=== PATIENT | female | born 1995 | race Caucasian/White ===

== ENCOUNTER → 2019-06-30 11:18 | Outpatient (CLI) | payer OTHER, SELFPAY | PROVIDERS: PCP Pediatrics; Visit Provider Obstetrics & Gynecology | DX: Z36.85 Encounter for antenatal screening for Streptococcus B (principal) | CPT/HCPCS: 87081 ==

== ENCOUNTER 2019-07-10 22:30 | Outpatient (CLI) | payer OTHER, SELFPAY ==
[2019-07-10 23:39] LABS: ROM Internal Control Test YES-OK TO RESULT pt. (Internal QC); ROM Patient Test Negative (Negative); Record Kit Lot#, ROM+ J8255
--- NOTE | 2019-07-11 09:47 | OB.TRI.HP_ITS ---
History of Present Illness Date of Service: 07/10/19 Was patient seen by the physician?: No Reason For Visit: R/O LABOR Date of Service: 07/10/19 Final LALA Source: LMP History of Present Illness: Pt c/o leaking of fluid and lower back pain since approx 2100 Allergies amoxicillin Allergy (Unknown, Verified 07/11/19 10:01) Other Unknown reaction Laboratory Studies: Laboratory Tests 07/10/19 Range/Units 22:50 Vag Amniotic Fld Detect Negative (Negative) NST - FHR Rate Baby A Baseline: 120 Variability:: Moderate Accelerations:: 15 x 15 Decelerations:: None NST Reactive:: Yes FHR Category:: Category I - FHR Rate Baby B Variability:: Moderate Decelerations:: None NST Reactive:: Yes FHR Category:: Category I Impression/Plan Assessment: 27yo @37w5d gestation c/o leaking of fluid and contractions GBS negative ROM negative Cat 1 FHTs No cervical supervisor policy change clerks 2 hours per RN Plan: Discharge home with [facility], labor precautions Follow up in office at next scheduled PBV
== END 2019-07-11 01:00 | disposition home or self-care (01) ==
LOC: WPOUT 23:06 → WP 23:06
PROVIDERS: Referring Provider Obstetrics & Gynecology; Visit Provider Obstetrics & Gynecology
DX: O47.1 False labor at or after 37 completed weeks of gestation (principal); O30.003 Twin pregnancy, unspecified number of placenta and unspecified number of amniotic sacs, third trimester; Z3A.37 37 weeks gestation of pregnancy
CPT/HCPCS: 59025; 59050; 84112; 99218; G0378

== ENCOUNTER 2019-07-11 12:10 | Outpatient (CLI) | payer OTHER, SELFPAY ==
[2019-07-11 12:50] VITALS: BMI 32.1
[2019-07-11] MEDS: Acetaminophen 500 MG Tablet 1000 MG PO (13:19)
[2019-07-11] MEDS: Lactated Ringers 1,000 ML 50 ML IV (18:10)
[2019-07-11 18:18] LABS: Absolute Lymphocyte Count 2.86 X10^3/uL (0.83-4.51); Absolute Neutrophil Count 9.7 X10^3/uL (2.0-7.7); Basophil# 0.03 X10^3/uL; Basophil% 0.2 % (0-1); Eosinophil# 0.13 X10^3/uL; Hematocrit 38.5 % (37-47); Hemoglobin 13.3 g/dL (12.0-15.0); Lymphocyte # 2.86 X10^3/ul (4.0); Mean Corp Hgb Conc 34.5 g/dL (32-36); Mean Corpuscular Hgb 35.2 pg (27.0-32.0); Mean Corpuscular Volume 101.9 fL (81-99); Mean Platelet Vol. 12.1 fl (6.2-12.0); Monocyte# 0.82 X10^3/uL; NRBC Flagged by Analyzer 0 % (0-5); Neutrophil # 9.73 X10^3/uL (2.7-7.7); Neutrophil % 71.3 % (47-70); Platelet Count 178 K/mm3 (150-450); RBC Distribution Width CV 12.4 % (11.6-14.6); RBC Distribution Width SD 46.5 fl (35.1-43.9); Red Blood Count 3.78 M/mm3 (4.2-5.4); White Blood Count 13.6 K/mm3 (4.4-11.0)
[2019-07-11] MEDS: Nalbuphine 10 MG/ML Ampul SC (18:27)
--- NOTE | 2019-07-11 22:35 | PCM.HP.BLA ---
History and Physical OB HISTORY AND PHYSICAL EXAMINATION This is a late entry for 07/11/19 at 1840 History of this : 23 yo female Ab0 with EDC 07/26/2019 by 9w3d Ultrasound, presents to Labor and Delivery today at 37w6d gestation. Patient seen office today c/o contractions and extreme fatigue r/t lack of sleep. She states she is extremely uncomfortable; She was at [facility] last night with same complaint and questionalble PROM; she was found to be ROM Plus negative, and without cervical chart changer two hours after which she was discharged home at about 0100 after discussion of options. Cervix at that time was 2/50/-2, soft and posterior; This morning she returned to [facility] and was told her cervix was only 1cm, after which she requested an appointment in the office. A BPP was done with score of 8/8. Cervical exam is 3.5/50/-2, soft and anterior with membranes intact. She is tearfrul, and experiencing extreme anxiety related to the upcoming one year anniversary of an daughter's from SIDS; Having made cervical change overnight, and continuing to contract, she is assumed to be in early labor and will be admitted to inpatient for pain management and expectant management of early labor. She is GBS negative;. care remarkable for: 2nd baby: mec stained fluid, Late transfer at 30 weeks from [place]; was in the [employer], Loss of daughter - unknown cause - at 6 weeks., Hx of preeclampsia, 4 yr old son is being tested for Autism, MSAFP performed at prior care provider for this . CF testing declined., NOT immune to Varicella!, Equivocal immunity to Rubella, Pt's sister has Mast Cell Disorder Pertinent Past Medical History: Non-contributory Rubella: EQUIVOCAL 11/15/18 Allergies: Omnicef, Amoxicillin Medications: PNV REVIEW OF SYSTEMS Non-Contributory PHYSICAL EXAMINATION General Appearence: 23 yo female in no acute distress Vital Signs: AF, VSS Heart: RRR without rubs or gallops Lungs: CTA x 2 Breasts: deferred Abdomen: gravid, soft, non tender Pelvis: Vulva: normal Vagina: normal Cervix: 3.5/50/-2, soft, anterior Presentation: Cephalic Fetus: Size: AGA Movement: Present present Heart: 155 bpm, moderate variability, with accels, no decels Uterus: Contractions Q2-5 minutes, palpating mild to moderate Impression: IUP @ 37w6d in early labor Anxiety Rubella equivocal GBS negative Plan: Admit to labor and delivery IV nubain for pain management Encourage rest Expectant management until active labor See Progress Notes for Changes:
[2019-07-11] MEDS: Lactated Ringers 500 ML 999 ML IV (23:45)
--- NOTE | 2019-07-12 01:41 | PCM.PN.OB ---
Subjective: This is a late entry for 07/11/191939 Dozing after a dose of Nubain; family bedside and supportive Objective: FHTs: 125 bpm, moderate variability, no accels, no decels UCs: Irritability pattern with occasional contractions Cervical exam: unchanged per RN - Physical Exam General: Oriented x3, Cooperative, No apparent distress HEENT: PERRLA, EOMI Oral: Moist Mucosa Neck: Supple Lungs: Clear to auscultation, Normal air movement Cardiovascular: Regular rate, Regular Rhythm Abdomen: Bowel Sounds Present, Soft, Non Tender, Non-Distended, Gravid Extremities: Capillary Refill Less than 3 Seconds, No Calf Tenderness Musculoskeletal: No Tenderness to Palpation of Joints or Extremities Neurological: Cranial nerves II-XII grossly intact, Deep Tendon Reflexes 2+/4 and Symmetrical Weight: 176 lb Body Mass Index (BMI) 32.1 Intake and Output for Last 24 Hours 07/10/19 07/11/19 07/12/19 23:59 23:59 23:59 Intake Total 366.67 / 366.67 Balance 366.67 / 366.67 Laboratory Tests Past 24 Hrs 07/11/19 07/11/19 18:00 18:00 WBC 13.6 H RBC 3.78 L Hgb 13.3 Hct 38.5 MCV 101.9 H MCH 35.2 H MCHC 34.5 RDW Std Deviation 46.5 H RDW Coeff of Kasie 12.4 Plt Count 178 MPV 12.1 H Immature Gran % (Auto) 0.500 Neut % (Auto) 71.3 H Lymph % (Auto) 21.0 [place] % (Auto) 6.0 Eos % (Auto) 1.0 Baso % (Auto) 0.2 Absolute Neuts (auto) 9.7 H Absolute Lymphs (auto) 2.86 Nucleated RBC % 0 Blood Type O POSITIVE Antibody Screen NEGATIVE Medical Necessity - Tobacco Use Smoking Status: Former smoker Assessment/Plan Assessment: Early labor Pain well controlld Anxiety Rubella equivocal GBS negative Plan: Close monitoring Continue expectant management until active labor
--- NOTE | 2019-07-12 02:59 | PN.OBGYN_ITS ---
Subjective: This is a late entry for 07/11/19 at 2130 Resting; rates occasional contraction pain and persistent back pain 4/10; declines medication at this time Objective: FHTs: 120 bpm, moderate variability, with accels, no decels UCs: Irritability pattern with occasional accels Cervical exam: deferred - Physical Exam General: Alert, Oriented x3, Cooperative Neurological: Cranial nerves II-XII grossly intact Psych/Mental Status: Normal Affect, Appropriate Weight: 176 lb Body Mass Index (BMI) 32.1 Intake and Output for Last 24 Hours 07/10/19 07/11/19 07/12/19 23:59 23:59 23:59 Intake Total 366.67 / 366.67 Balance 366.67 / 366.67 Laboratory Tests Past 24 Hrs 07/11/19 07/11/19 18:00 18:00 WBC 13.6 H RBC 3.78 L Hgb 13.3 Hct 38.5 MCV 101.9 H MCH 35.2 H MCHC 34.5 RDW Std Deviation 46.5 H RDW Coeff of Kasie 12.4 Plt Count 178 MPV 12.1 H Immature Gran % (Auto) 0.500 Neut % (Auto) 71.3 H Lymph % (Auto) 21.0 [place] % (Auto) 6.0 Eos % (Auto) 1.0 Baso % (Auto) 0.2 Absolute Neuts (auto) 9.7 H Absolute Lymphs (auto) 2.86 Nucleated RBC % 0 Blood Type O POSITIVE Antibody Screen NEGATIVE Medical Necessity - Tobacco Use Smoking Status: Former smoker Assessment/Plan Assessment: Early vs. Latent labor Tolerating pain well Anxiety Rubella equivocal GBS negative Plan: Continue expectant management
--- NOTE | 2019-07-12 03:15 | PN.OBGYN_ITS ---
Subjective: This is a late entry for 07/11/18 at 2345 Feeling naueus, nervous; expressing fear that she will be sent home; declines antiemetic family and spouse bedside and supportive Objective: Afebrile, BP 98/65 FHTs: 115 bpm with accels, no decels UCs: Irritibility patter Cervical exam: deferred - Physical Exam General: Alert, Oriented x3, Cooperative Neurological: Cranial nerves II-XII grossly intact Psych/Mental Status: Anxious, Restless Weight: 176 lb Body Mass Index (BMI) 32.1 Intake and Output for Last 24 Hours 07/10/19 07/11/19 07/12/19 23:59 23:59 23:59 Intake Total 366.67 / 366.67 Balance 366.67 / 366.67 Laboratory Tests Past 24 Hrs 07/11/19 07/11/19 18:00 18:00 WBC 13.6 H RBC 3.78 L Hgb 13.3 Hct 38.5 MCV 101.9 H MCH 35.2 H MCHC 34.5 RDW Std Deviation 46.5 H RDW Coeff of Kasie 12.4 Plt Count 178 MPV 12.1 H Immature Gran % (Auto) 0.500 Neut % (Auto) 71.3 H Lymph % (Auto) 21.0 [place] % (Auto) 6.0 Eos % (Auto) 1.0 Baso % (Auto) 0.2 Absolute Neuts (auto) 9.7 H Absolute Lymphs (auto) 2.86 Nucleated RBC % 0 Blood Type O POSITIVE Antibody Screen NEGATIVE Medical Necessity - Tobacco Use Smoking Status: Former smoker Assessment/Plan Assessment: Prodromal labor Transient hyptension Anxiety Rubella equivocal GBS negative Plan: 500 ml bolus LR Turn from back onto right side Close monitoring Emotional support Continue expectant management
--- NOTE | 2019-07-12 03:25 | PN.OBGYN_ITS ---
Subjective: Time: Crying, restless, anxiety increasing, fears that she will be sent home; states that she feels lower pelvic pressure and increased vaginal discharge; family, spouse bedside, supportive Objective: AVSS FHTs: 125bpm, moderate variability, with accels, no decels UCs: Irritability pattern with occasional contractions Cervical exam: unchanged - Physical Exam General: Alert, Oriented x3, Cooperative Neurological: Cranial nerves II-XII grossly intact Psych/Mental Status: Anxious, Restless, Alert and oriented to time, place, person, mood and affect Weight: 176 lb Body Mass Index (BMI) 32.1 Intake and Output for Last 24 Hours 07/10/19 07/11/19 07/12/19 23:59 23:59 23:59 Intake Total 366.67 / 366.67 Balance 366.67 / 366.67 Laboratory Tests Past 24 Hrs 07/11/19 07/11/19 18:00 18:00 WBC 13.6 H RBC 3.78 L Hgb 13.3 Hct 38.5 MCV 101.9 H MCH 35.2 H MCHC 34.5 RDW Std Deviation 46.5 H RDW Coeff of Kasie 12.4 Plt Count 178 MPV 12.1 H Immature Gran % (Auto) 0.500 Neut % (Auto) 71.3 H Lymph % (Auto) 21.0 [place] % (Auto) 6.0 Eos % (Auto) 1.0 Baso % (Auto) 0.2 Absolute Neuts (auto) 9.7 H Absolute Lymphs (auto) 2.86 Nucleated RBC % 0 Blood Type O POSITIVE Antibody Screen NEGATIVE Medical Necessity - Tobacco Use Smoking Status: Former smoker Assessment/Plan Assessment: Protracted Prodromal Labor Extreme anxiety Cat 1 FHTs Plan: Extensive discussion with patient, family re: fear, anxiety related to pending and coping with one year anniversary of loss of previous infant to SIDS, and potential relationship to protracted prodromal labor; options for therapeutic rest, comfort measures, coping measures; offered private time with spouse to talk through fears, anxiety, unexpressed grief, followed by warm shower, a walk, a meal, etc., and/or IV pain medication to promote rest; Pt agrees to private time with spouse, followed by a light meal then IV pain medication to allow for rest Reassurance provided Regular diet ordered until active labor May have IV nubain after meal for pain management or sleep
--- NOTE | 2019-07-12 06:54 | PN.OBGYN_ITS ---
Subjective: Reports minor back discomfort, has had an opportunity to process feelings in private with spouse, has had a meal and a nap, and feeling much better better about the potential for discharge home Objective: AVSS FHTs: 120bpm baseline, moderate variability with accels, no decels UCs: Occasional, mild Cervix: unchanged at 3.5/50/-2 - Physical Exam General: Alert, Oriented x3, Cooperative, No apparent distress Neurological: Cranial nerves II-XII grossly intact Psych/Mental Status: Normal Affect, Appropriate, Alert and oriented to time, place, person, mood and affect Comment: Affect now relaxed and without anxiety Weight: 176 lb Body Mass Index (BMI) 32.1 Intake and Output for Last 24 Hours 07/10/19 07/11/19 07/12/19 23:59 23:59 23:59 Intake Total 366.67 / 366.67 620 / 620 Output Total 500 / 500 Balance 366.67 / 366.67 120 / 120 Laboratory Tests Past 24 Hrs 07/11/19 07/11/19 18:00 18:00 WBC 13.6 H RBC 3.78 L Hgb 13.3 Hct 38.5 MCV 101.9 H MCH 35.2 H MCHC 34.5 RDW Std Deviation 46.5 H RDW Coeff of Kasie 12.4 Plt Count 178 MPV 12.1 H Immature Gran % (Auto) 0.500 Neut % (Auto) 71.3 H Lymph % (Auto) 21.0 [place] % (Auto) 6.0 Eos % (Auto) 1.0 Baso % (Auto) 0.2 Absolute Neuts (auto) 9.7 H Absolute Lymphs (auto) 2.86 Nucleated RBC % 0 Blood Type O POSITIVE Antibody Screen NEGATIVE Medical Necessity - Tobacco Use Smoking Status: Former smoker Assessment/Plan Assessment: IUP at 38w0d with recent episodes of painful contractions and cervical change, now resolved No cervical change in 12 hours, not in labor Recent feelings of anxiety resolving Cat 1 FHTs Plan: Discussed at length risks/benefits of IOL at 39 weeks vs. now; patient readily accepts recommendation for IOL at 39 weeks; consents signed and witnessed IOL scheduled for July 26 at 0700 with department approval Discharge instructions discussed IV removed Discharge home with labor precautions, FM counts, recommendations for rest; follow up in office at next scheduled PNV
--- NOTE | 2019-07-12 07:21 | NURSING ---
pt being discharged prior to delivery. BC not completed. WP section not filled out completely d/t no at this time.
--- NOTE | 2019-07-13 13:25 | CASEMGMT ---
Social Work Labor and Delivery Consult placed for this patient on 07.11.2019 at 1930, which is after normal social work hours, for history of loss of 6 week old infant about a year ago, history of depression and anxiety. Patient then discharged on 07.12.2019 at approximately 0720, which is prior to this freelance writer's normal arrival time. Noted that patient has not yet delivered, and listed with an estimated date of delivery as 07.26.2019. Social work will plan to see patient at delivery admission for assessment, support, and provision of resources as indicated. Note left on care chart in labor and delivery unit for the need to reconsult social work at time of delivery. -LATRICE Gaitan, FUR REPAIRER
== END 2019-07-12 07:40 | disposition home or self-care (01) ==
LOC: WPOUT 12:16 → WP 12:16
PROVIDERS: Referring Provider Obstetrics & Gynecology; Visit Provider Obstetrics & Gynecology
DX: O60.03 Preterm labor without delivery, third trimester (principal); O99.343 Other mental disorders complicating pregnancy, third trimester; F41.8 Other specified anxiety disorders; O13.3 Gestational [pregnancy-induced] hypertension without significant proteinuria, third trimester; Z78.9 Other specified health status; Z3A.38 38 weeks gestation of pregnancy; Z87.891 Personal history of nicotine dependence
CPT/HCPCS: 96360; 96372; 59025; 59050; 85025; 86850; 86900; 86901; 99218; J7120; G0378

== ENCOUNTER 2019-07-19 00:15 | Inpatient (IN) | payer OTHER, SELFPAY ==
[2019-07-18 22:44] VITALS: BMI 32.2
[2019-07-19] MEDS: Lactated Ringers 1,000 ML 50 ML IV (00:30)
[2019-07-19 00:42] LABS: Absolute Lymphocyte Count 2.89 X10^3/uL (0.83-4.51); Absolute Neutrophil Count 11.5 X10^3/uL (2.0-7.7); Basophil# 0.04 X10^3/uL; Basophil% 0.3 % (0-1); Eosinophils% 0.6 % (0-5); Hemoglobin 12.6 g/dL (12.0-15.0); Lymphocyte # 2.89 X10^3/ul (4.0); Lymphocyte % 18.4 % (19-41); Mean Corp Hgb Conc 34.1 g/dL (32-36); Mean Corpuscular Hgb 34.7 pg (27.0-32.0); Mean Corpuscular Volume 101.9 fL (81-99); Mean Platelet Vol. 12.5 fl (6.2-12.0); Monocyte# 1.06 X10^3/uL; Monocyte% 6.7 % (0-10); NRBC Flagged by Analyzer 0 % (0-5); Neutrophil # 11.51 X10^3/uL (2.7-7.7); Neutrophil % 73.3 % (47-70); POSITIVE MORPHOLOGY YES; Platelet Count 158 K/mm3 (150-450); RBC Distribution Width CV 12.7 % (11.6-14.6); RBC Distribution Width SD 47.4 fl (35.1-43.9); Red Blood Count 3.63 M/mm3 (4.2-5.4); White Blood Count 15.7 K/mm3 (4.4-11.0)
[2019-07-19 00:43] LABS: Differential Indicated SCAN CRITERIA MET
[2019-07-19] MEDS: Nalbuphine 10 MG/ML Ampul IV (01:02)
[2019-07-19 01:11] LABS: Differential Comment SCANNED
[2019-07-19] MEDS: Lactated Ringers 500 ML 999 ML IV ×2 (07:06→08:43)
[2019-07-19] MEDS: Oxytocin 30 units/NS 500 ml 30 UNITS/500 ML IV.SOLN IV (07:54)
--- NOTE | 2019-07-19 08:04 | HP.PCM_ITS ---
History and Physical Date of Admission: 07/18/19 This is a late entry for 07/19/2019, 0715 This is a 23 yo at 39w0 gestation today by L=92w1d US admitted last evening for contractions; she has had several visits prior to this for prodromal labor without cervical change and is scheduled for IOL today; given an infant demise within the past year at 6 weeks of age for unknown cause (SIDS), and maternal anxiety, a decision was made to admit her overnight for expectant management, then proceed with pitocin IOL today. [facility] [place] - HISTORY AND PHYSICAL (07/19/2019) Name: TAWANA MARTINEZAH OB Physician: JAMEL [place]'s Physician: UNDECIDED ...................................................................... : 1995 Age: 23 Address: [address] [place] [address] Phone: (h) [phone] ([phone] Insurance Carrier: [employer] [id number] Emergency Contact: SHANELL KUO [phone] ...................................................................... Final LALA: 07/26/19 By Ultrasound: 9w1d PARITY: (G-Total Pregnancies P-Fullterm,Premature,Induced AB,Spont AB, Ectopics, Multiple,Living) LALA CONFIRMATION: By LMP: 10/19/18 Final LALA: 07/26/19 BLOOD TYPE: O POSITIVE AFP: 1 HR PG: GBS: Original Ordering Provider: Wang TERRELL Culture Group B Beta Streptococcus is not isolated. Rublla titer (>10 immune)--Nov 15 2018: EQUIVOCAL Hepatatis B alan AG-- Nov 15 2018: NEGATIVE OB PROBLEM LIST: 2nd baby: mec stained fluid 4 yr old son is being tested for Autism ALLERGIC to PCN, Omnicef, Amoxicillin! Equivocal immunity to Rubella Hx of preeclampsia Late transfer at 30 weeks from [place]; was [employer] Loss of daughter - unknown cause - at 6 weeks. MSAFP performed at prior care provider for this . CF testing declined. NOT immune to Varicella! Pt's sister has Mast Cell Disorder ALLERGIES: Amoxicillin Hives and/or rash Omnicef Pcn Hives SOCIAL HISTORY: Smoking - used to smoke but quit Alcohol Use - denies drinking Diet - no special diet Lifestyle - moderate stress lifestyle, and recent relocation Exercise - active Job Description - Illicit Drug Use - denies use of street drugs Sexual Activity - Residence - Lives with 's family Place of - [place], [place] Spouse-Sig Other Name - Shanell Kuo (spouse) Spouse-Sig Other Occupation - Framework at [employer] Spouse-Sig Other Phone No - [phone] Children Name(s) - Mary '15, Julius '18 () PRIOR DELIVERY HISTORY DEL DATE GEST LAB WT LB WT OZ TYPE ANES LABOR TX March 02 38 7 6 0 Vag Epidural No May 05 38 32 6 11 Vag Epidural No ANTEPARTUM FLOW CHART VISIT GE RTC FU F F PA U U DATE WK MD WKS HT PN HR M SS BP ED WT PA GL D EF ST __ ____ ___ __ __ ___ __ __ __ ___ __ __ __ ___ __ 30 Jun JMW 6 38 + + 100/80 sl 174 - - Jun KW 1 38 V + + 110/70 sl 171 tr - 3 50 -2 Jun 37 JMW 6 38 on / 173 3+ 50 -2 Jun JMW 1 37 + + 108/66 tr 173 tr - 12 Jun 36 JMW 1 36 V + + 122/72 tr 169 tr - ft 50 -2 May JMW 2 34 + + 110/80 0 170 - - 15 May SHM 2 32 + + 110/70 0 167 - - Jun 10 DAISHA 2 30 + + 120/70 0 169 - - ANTEPARTUM NOTE(S): Jul 18 2019: lower back pains., Induce per Request Jul 14 2019: back cxs. stringy pink discharge. Jul 11 2019: in Labor to L and D Jul 07 2019: Low backache,alittle crampy Jun 30 2019: GBS Today,LARC Form signed,Good FM Jun 16 2019: feeling well. Cough and sore throat. Reviewed allergy meds. Jun 02 2019: see note May 19 2019: had NOB visit today. COMPREHENSIVE ANTEPARTUM NOTE(S): Jul 14 2019: Feeling well; reports active FM; denies VB, LOF; reports some stringy pink discharrge; cervix 3.5/50/-2, soft, mid position; discussed warning signs, s/s Labor, when to call/come in; RTO Thursday07/19/19 for BPP, PNV - KVW Jul 11 2019: Patient c/o contractions and extreme fatigue r/t lack of sleep. She states she is extremely uncomfortable; She was at [facility] last night with same complaint and questionalble PROM; she was found to be ROM Plus negative, and without cervical global climate change analyst two hours after which she was discharged home at about 0100 after discussion of options. Cervix at that time was 2/50/-2, soft and posterior; This morn ng she returned to [facility] and was told her cervix was only 1cm, after which she requested an appointment in the office. A BPP was done with score of 8/8. Cervical exam is 3.5/50/-2, soft and anterior with membranes intact. She is tearfrul, and experiencing extreme anxiety related to the upcoming one year anniversary of an daughter's from SIDS; Having made cervical change overnight, and continuing to conract, she is assumed to be in early labor and will be admitted to inpatient for pain management and expectant management of early labor. Jul 07 2019: Feeling well; reports active FM; denies VB, LOF; some BH contraxtions with round ligament discomfort; feeling some anxiety and guilt regarding pending r/t deah of prevo, s to SIDs and feeling disloyal for feeling excited about this ; reassurance and encouragement provided, discussed comfort measuresarning signs, s/s Labor, when to call/come in; RTO 1 week for PNV - KVW Jul 06 2019: H taken to OB. tkg Jul 04 2019: GBS negative. EB Jun 30 2019: Salty presents here today for PNV and reports having headache x 3 days and alittle blurry vision. We discussed increasing her water intake and reviewed s/s of dehydration. Mild occasional contractions. Good FM. GBS today a nd LARC Form signed. MAYI Jun 02 2019: Salty is being seen for PNV. She is feeling well. She voices concerned about delivery due to it being around the time that she buried her daughter. She also was concerned because she does better laboring out of her bed and was wondering if the monitors were wireless. AM Jun 02 2019: Reports good FM, denies UCS, LOF or VB; reports continued heartburn; concerned about not being able to move about during labor, as last she was confind to bed and found it to be intolerable; reassured her that she will have freedom of movement within safe limits during labor. Concerned about family members comig to hospital when she is in labor that she does not want there. Discussed s/s PTL, measures to treat heartburn, and Do Not Publish desigation on arrival to . She is planning to use Depo Provera for contraception post delivery May 19 2019: Salty is here at 30 w 2 d for her transfer NOB visit, she is a L1 with an LALA of 07/26/2019. She and her family recently moved from [place], as her was discharged form the [employer]. They currently reside in [place] with his parents. They have a 4 year old son at home; and they had a daughter in April 2018, who from unknown causes in 2017. Discussed Bereavement Program in [facility], and name of the [employer] Office Assistant at [facility] provided. Also discussed that [facility] has a bereavement program. Delivery at [facility] is planned, and she wants to breastfeed. Office class discussed. Also encouraged taking group tour of [facility], and times/dates provided. Salty states that she is feeling well, and reports good FM. She denies spotting/cramping. She takes an OTC vitamin that contains DHA and tolerate this well. Office practice rodney santos reviewed. Office ed materials provided, including a copy of What to Expect.... Reviewed contacting the office after hours, danger signs/emergencies to report, round ligament pain, reporting s/s of a UTI, and common OTC medications approved/not approved for use during . MSAFP drawn at previous provider, and she declines CF testing; consent signed as such. Genetic Screening form completed, she wang sa sister with Mast Cell Disorder, and pt's son is being tested for Autism; she states that he has known ADHD, and OCD. dietary and water needs reviewed, printed guide for food safety provided with review, discussed recommended weight gain, limiting empty calories, and limiting caffeine to one cup a day. She walks everyday. Reviewed Kegel exercises. lifting restrictions discussed. Salty has no questions following NOB visit, and states that she understands all information provided during same. She quit smoking with discovery, and denies use of drugs or ETOH. AW REVIEW OF SYSTEMS: GENERAL - Denies fever, or chills SKIN - Denies rash, new skin lesions, or change in moles EYES - Denies blurred vision, or change in visual acuity EARS - Denies ear pain, or difficulty hearing NOSE - Denies nasal congestion, discharge, or bleeding MOUTH - Denies sore throat, or difficulty swallowing NECK - Denies pain or swelling RESPIRATORY - Denies shortness of breath, cough, wheezing CARDIOVASCULAR - Denies palpitations, chest pain, orthopnea, PND, peripheral edema, syncope or claudication GASTROINTESTINAL - Denies nausea, vomiting, diarrhea, constipation, Denies abdominal pain, melena and or bright red blood GENITOURINARY - Denies dysuria, frequency of urination, urgency, or hesitancy MUSCULOSKELETAL - Denies joint or muscle pain, or back pain NEUROLOGICAL - Denies localized numbness, weakness, or tingling PSYCHIATRIC - Denies depression, anxiety, substance abuse or suicide attempts ENDOCRINE - Denies heat or cold intolerance, weight loss or gain, increasing thirst HEMATO-IMMUNOLOGIC - Denies easy bruising, bleeding, oral ulcerations or recurrent infections GENETICS SCREENING: Age 35+ years: No Thalassemia: No Neural Tube Defect: No Down Syndrome: No SANTA-SACHS: No Sickle Cell Disease: No Hemophilia: No Musc. Dystrophy: No Cystic Fibrosis: No-declines screening [place] Chorea: No Mental Retardation: No Fragile X: No Other genetic: No Other defects: No SABs/still births: No Drugs since LMP: No Comments: daughter at 6 wks old INFECTION HISTORY: High risk AIDS: No High risk Hepatitis: No Exposed to TB: No Exposed to Herpes: No Rash/viral illness since LMP: No History of STD: No MENSTRUAL HISTORY: *Menses Amount/Duration: spottingMenses Regularity: RegularFrequency: monthlyBCP's at Conception: YesMenarche (Age Onset): 13* PAST SUMMARY: PARITY: 1. Total Pregnancies............ 3 2. Full Term Pregnancies........ 2 3. Premature.................... 0 4. Abortions - Induced.......... 0 5. Abortions - Spontaneous...... 0 6. Ectopics..................... 0 7. Multiple Births.............. 0 8. Living Children.............. 1 PAST #1: Date of :.................. 03/01/15 Gestation Weeks:................ 38 Length of labor(hours):......... 7 Sex:............................ M Weight-lbs:............... 6 Weight-oz:................ 0 Type of Delivery:............... Vag Type of Anesthesia:............. Epidural Place of Delivery:.............. IN Treatment of Labor?:.... No Comment: IOL - HTN, GBS+ PAST #2: Date of :.................. 05/05/18 Gestation Weeks:................ 38 Length of labor(hours):......... 32 Sex:............................ F Weight-lbs:............... 6 Weight-oz:................ 11 Type of Delivery:............... Vag Type of Anesthesia:............. Epidural Place of Delivery:.............. CA Treatment of Labor?:.... No Comment: IOL, HTN, BABY AT 6 WKS PHYSICAL EXAMINATION General Appearence: 23 yo female in no acute distress Vital Signs: AF, VSS Heart: RRR without rubs or gallops Lungs: CTA x 2 Breasts: deferred Abdomen: gravid Pelvis: Cervix: 4/60/-1, soft, mid position Presentation: cephalic Fetus: Size: AGA Movement: present Heart: present Labor: FHTs: 135 baseline, moderate variability, with accels, no decels UCs: Irritability only Labs for : SALTY MARTINEZ since 10/29/2018 8 TYPE AND SCREEN 07/11/19 Reason for Type AND Screen/Red Cells: Labor [facility]~[address] [place], [address]~ BLOOD TYPE GEL O POSITIVE N ANTIBODY SCREEN NEGATIVE N Reviewed by VIDA CBC W/DIFF, AUTOMATED 07/11/19 NOTE Original Ordering Provider: Wang Paiz WBC 13.6 K/mm3 4.4-11.0 H RBC 3.78 M/mm3 4.2-5.4 L HGB 13.3 g/dL 12.0-15.0 HCT 38.5 % 37-47 MCV 101.9 fL 81-99 H MCH 35.2 pg 27.0-32.0 H MCHC 34.5 g/dL 32-36 RDW CV 12.4 % 11.6-14.6 RDW SD 46.5 fl 35.1-43.9 H PLT 178 K/mm3 150-450 MPV 12.1 fl 6.2-12.0 H NEUT% 71.3 % 47-70 H LY% 21.0 % 19-41 MONO% 6.0 % 0-10 EO% 1.0 % 0-5 BASO% 0.2 % 0-1 IM GRAN % 0.500 % 0.0-0.9 IG% - Immature Granulocytes (promyelocytes, myelocytes and metamyelocytes) > 1% indicates that a LEFT SHIFT is Present. ABSOLUTE NEUT 9.7 X10 3/uL 2.0-7.7 H ABSOLUTE LYMPH 2.86 X10 3/uL 0.83-4.51 NRBC, FLAGGED 0 % 0-5 Reviewed by VIDA (DOMENIC) RUPTURE OF MEMBRANES 07/10/19 NOTE Original Ordering Provider: Vida SHETH Negative Negative Amniotic fluid not present indicates No Rupture of Membranes at time of specimen collection. Reviewed by VIDA CULTURE, GROUP B STREPTOCOCCUS 06/30/19 NOTE Original Ordering Provider: Wang TERRELL Culture Group B Beta Streptococcus is not isolated. Reviewed by VIDA 24-35 Week Labs 04/06/19 HCT/HGB 12.6/37.5 PLATELETS: 220 GTT FBS 137 Reviewed by WANG Varicella 11/15/18 Varicella IgG NON-IMMUNE Immune Reviewed by WANG Initial OB Labs 11/15/18 Blood Type O Rh Type POSITIVE Antibody Screen NEG Negative Hemoglobin Initial OB 14.2 Hematocrit Initial OB 42.4 PLT 250 Rubella EQUIVOCAL Immune VDRL NON-REACTIVE Non Reactive HBsAg NEGATIVE Negative HIV Test NEGATIVE Negative Reviewed by WANG PROVIDER SIGNATURE ( REQUIRED) Impression: IUP at [id number] by LMP = 9w1d US Elective IOL secondary to infant demise within the past year/maternal anxiety GBS negative Plan: Continuous EFM Begin pitocin, titrate to achieve adequate labor Pt may have epidural upon request Anticipate vaginal delivery
[2019-07-19] MEDS: fentaNYL-bupivacaine (epidural) 100 ML BAG EPIDURAL (09:45)
[2019-07-19] MEDS: Oxytocin 30 units/NS 500 ml 30 UNITS/500 ML IV.SOLN 334 UNITS IV (12:48)
--- NOTE | 2019-07-19 12:55 | PLAC_PTH ---
PATIENT: SALTY BIGGS LOC: WP U#:[id number] AGE/SX: 23/ ROOM: WP015 RE07/19/[address]: Regina Ni CNM : 1995 BED: 1 DIS: 07/20/2019 SPEC #: [id number] RECD: 07/19/19 14:33 STATUS: PACO RESteven #: [id number] [place]: 07/19/19 12:[address]: Regina Ni DEPT: SURGICAL PATHOLOGY RECD BY: Pilar Matthews ENTERED: 07/19/19 14:54 SP TYPE: PLACENTA OTHR DR: No Primary Care Phys Tissues: Placenta, NOS Procedures: Surgery Specimen Level V HEADER OPERATION: Labor and delivery PRE-OP DIAGNOSIS: Small placenta TISSUE SUBMITTED: Placenta MICROSCOPIC DIAGNOSIS Placenta: Placental disc - third trimester placenta (389 gm). - Focal minimal acute vasculitis of subamnionic blood vessels. - Fibrinous plaque, surface (largest measuring 2 cm in greatest dimension). Membranes - acute chorioamnionitis. Umbilical cord - three blood vessels and mild acute funisitis. SJ:lake 07/21/19 MICROSCOPIC DESCRIPTION Slides are reviewed. GROSS DESCRIPTION SPECIMEN: PLACENTA / CLINICAL INFORMATION: A. Weight: 2.787 gm B. Gestational Age: 39 weeks C. Sex: Female PLACENTAL WEIGHT (POST FIXATION): 389 gm PLACENTAL DIMENSIONS: 15 x 15 x 3.5 cm PLACENTAL SHAPE: Usual ovoid PLACENTAL WEIGHT FOR GESTATIONAL AGE: Within 10-99th percentile MEMBRANES - Present A. Insertion: Marginal B. Site of rupture from edge: The membranes are fragmented and distance of rupture cannot be assessed. C. Color of membrane: Beckham-petty D. Abnormalities: None UMBILICAL CORD - Present A. Color: Beckham-petty B. Insertion: Paracentral C. Length: 42 cm D. Diameter: 1.3 cm E. Number of vessels: Three F. Abnormalities: None PLACENTAL DISC - Present A. Color of surface: Beckham-petty B. surface abnormalities: The surface shows a few beckham-white plaque. The largest plaque measures 2 cm in greatest dimension. C. Maternal cotyledons: Intact with minimal tears D. Attached retro placental clot: No clot E. Cut surface: Dark red and spongy F. Lesions: None G. Separate clot: Absent SECTIONS SUBMITTED: 1. Membrane roll 2. Cord, maternal end 3. Cord, end 4. Placental disc, and maternal surfaces, plaque surface 5. Placental disc, and maternal surfaces 6. Placental disc, and maternal surfaces, plaque surface SJ:lake 07/20/19 TC:2 CPT: 96585
--- NOTE | 2019-07-19 13:07 | PCM.OPRPT ---
Vaginal Delivery Maternal Presentation: Elective Induction Patient presented to L&D c/o contractions last night, did not progress; as IOL was scheduled for this morning, the decision was made to admit her for therapeutic rest then proceed with IOL this morning. Method of Induction: Pitocin Amniotic Membrane Rupture Type: Artificial Rupture of Membrane time: 1130 Amniotic Fluid Description: Clear Final LALA: 07/26/19 Final LALA Source: US <20 weeks Gestational age: 39 Weeks and 0 Days Date of Procedure: 07/19/19 Pre-Operative Diagnosis: 39 weeks gestation Post-Operative Diagnosis: Surgery/ Procedure Performed: Spontaneous Vaginal Delivery Type of Anesthesia: Epidural Description of Procedure: Pushed with steady progress and delivered a viable female over an intact perineum, OA to HAMZAH; tight nuchal cord noted, unable to reduce on perineum, shoulders followed quickly and cord was reduced immediately upon delivery; placed on mother's abdomen, dried, and stimulated, cord clamped x 2 and cut by FOB under supervision of CNM; APGARS 8/9; placenta delivered with gentle cord traction, 3-vessel cord, marginal insertion; as the size seemed small, it will be sent to pathology. Uterine exploration performed, no remaining remnants of placenta found; fundus firm, perineum intact post delivery; EBL 350 Raytec and instrument counts correct x two with RN Presentation: Vertex, HAMZAH Placental Delivery Description: Spontaneous Placenta Disposition: Sent to Pathology Cord Vessel Description: 3 Vessels Cord Entanglement: Around neck x 1, tight Estimated Blood Loss: 350 Infant A gender: Female (1 minute): 8 (5 minute): 9 Episiotomy Description: None Laceration: None Medications given after delivery: IV Pitocin
--- NOTE | 2019-07-19 13:27 | DCINST_ITS ---
You will use the following diet at home:: No restrictions, Regular Your food should be the consistency of: Regular Your liquids should be the consistency of: Regular/Thin Discharge Activity: Return to Normal Activity, No Restrictions, May Drive, May Shower, May Take a Tub Bath May resume sexual activity in: 4-6 weeks Weight Bearing Status: Weight bearing as tolerated Lifting Restrictions: 10 lbs Additional Activity Instructions:: No cooking, cleaning, shopping for two weeks; no long car trips for two weeks Call your doctor if your incision/area has: Continuous Slow Oozing, Sudden Increased Bleeding, Increased Pain/ Swelling, Increased Redness, Foul Smelling Discharge Call your doctor if you observe: Fever of 101 or Higher, Inability to urinate, Inability to have a bowel movement, Using more than one pad per hour, Shortness of breath, Dizziness, Fainting spells, Chest pain, Calf discomfort, Uncontrolled pain Allergies/Adverse Reactions: Allergies amoxicillin Allergy (Unknown, Verified 07/18/19 22:45) Other Unknown reaction cefdinir [From Omnicef] Allergy (Verified 07/18/19 22:45) Abd cramps/diarrhea Penicillins [PCN] Allergy (Verified 07/18/19 22:45) Hives Medications to take at Discharge Formula Tablet 1 tab PO DAILY 07/11/19 Primary Care Physician: Care Physician,No Primary [Primary Care Provider] - Test Results: Test results from this visit will be discussed in further detail at your follow- up appointment, if applicable. Please Follow Up With: Regina Ni CNM When: 6 weeks
[2019-07-19] MEDS: 0.9% Saline Lock 10 ML Syringe IV (15:49)
[2019-07-19] MEDS: Ibuprofen 600 MG Tablet PO ×2 (15:49→21:44)
[2019-07-19 19:29] VITALS: BP 108/63; PULSE 105; RESP 18; TEMP 36.6
[2019-07-19 23:44] VITALS: BP 110/60; PULSE 86; RESP 18; TEMP 35.5
[2019-07-20 03:30] VITALS: BP 103/63; PULSE 90; RESP 18; TEMP 35.5
[2019-07-20 07:11] LABS: Hematocrit 33.2 % (37-47); Hemoglobin 11.1 g/dL (12.0-15.0); Mean Corp Hgb Conc 33.4 g/dL (32-36); Mean Corpuscular Hgb 34.8 pg (27.0-32.0); Mean Corpuscular Volume 104.1 fL (81-99); Mean Platelet Vol. 12.8 fl (6.2-12.0); Platelet Count 131 K/mm3 (150-450); RBC Distribution Width CV 12.8 % (11.6-14.6); RBC Distribution Width SD 49.2 fl (35.1-43.9); Red Blood Count 3.19 M/mm3 (4.2-5.4); White Blood Count 13.2 K/mm3 (4.4-11.0)
--- NOTE | 2019-07-20 07:56 | PCM.PN.OB ---
Subjective: Resting comfortably, tolerating diet, passing flatus, has had BM, denies pain, nursing well; would like to be discharged home at 24 hours if she and mayelin. Objective: AVSS Breasts soft, nipples atraumatic Fundus firm, midline, u/2, lochia scant - Physical Exam General: Alert, Oriented x3, Cooperative, No apparent distress HEENT: PERRLA, EOMI Oral: Moist Mucosa Neck: Supple Lungs: Clear to auscultation, Normal air movement Cardiovascular: Regular rate, Regular Rhythm Abdomen: Bowel Sounds Present, Soft, Non Tender, Non-Distended, Passing Flatus Extremities: Capillary Refill Less than 3 Seconds, No Calf Tenderness Musculoskeletal: No Tenderness to Palpation of Joints or Extremities Neurological: Cranial nerves II-XII grossly intact, Deep Tendon Reflexes 2+/4 and Symmetrical Psych/Mental Status: Normal Affect, Appropriate, Alert and oriented to time, place, person, mood and affect Vital Signs Temp Pulse Resp BP 96 F L 90 18 103/63 07/20/19 03:30 07/20/19 03:30 07/20/19 03:30 07/20/19 03:30 Weight: 176 lb 5.917 oz Body Mass Index (BMI) 32.2 Intake and Output for Last 24 Hours 07/18/19 07/19/19 07/20/19 23:59 23:59 23:59 Intake Total 2859.41 / 2859.41 Output Total 700 / 700 Balance 2159.41 / 2159.41 Laboratory Tests Past 24 Hrs 07/20/19 05:40 WBC 13.2 H RBC 3.19 L Hgb 11.1 L Hct 33.2 L MCV 104.1 H MCH 34.8 H MCHC 33.4 RDW Std Deviation 49.2 H RDW Coeff of Kasie 12.8 Plt Count 131 L MPV 12.8 H Medical Necessity - Tobacco Use Smoking Status: Former smoker Assessment/Plan Assessment: PP Day #1, normal involution, normal course Coping well r/t hx of demise of previous Plan: Discharge teaching done Social Work Consult to assess coping and resources for hx of demise with previous infant Discharge home after 24 hours if stable RTO 6 weeks for PP exam
[2019-07-20 08:53] VITALS: BP 120/73; PULSE 109; RESP 18; TEMP 35.7; O2SAT 99
[2019-07-20] MEDS: Ibuprofen 600 MG Tablet PO (10:13)
--- NOTE | 2019-07-20 10:16 | NURSING ---
This nursing staff development coordinator directly observed the med administration provided by Luke Medina, student nurse.
[2019-07-20 11:40] VITALS: BP 116/70; PULSE 93; RESP 16; TEMP 36.1; O2SAT 99
[2019-07-20 14:19] VITALS: BP 122/73; PULSE 78; RESP 17; TEMP 36.6; O2SAT 99
--- NOTE | 2019-07-20 15:10 | NURSING ---
This professor of nursing reviewed the documentation completed by Luke Medina, student nurse and it is complete.
[2019-07-21 14:45] LABS: Pathology Specimen OB SEE PATHOLOGY REPORT
== END 2019-07-20 15:33 | disposition home or self-care (01) | DRG 807 ==
LOC: WPOUT 00:17
PROVIDERS: Admitting Provider Advanced Practice Midwife; Referring Provider Advanced Practice Midwife; Visit Provider Advanced Practice Midwife
DX: O69.1XX0 Labor and delivery complicated by cord around neck, with compression, not applicable or unspecified (principal); Z37.0 Single live birth; O16.4 Unspecified maternal hypertension, complicating childbirth; O99.344 Other mental disorders complicating childbirth; F41.9 Anxiety disorder, unspecified; Z3A.39 39 weeks gestation of pregnancy; Z87.891 Personal history of nicotine dependence; Z87.59 Personal history of other complications of pregnancy, childbirth and the puerperium
CPT/HCPCS: 59025; 59050; 85025; 85027; 86850; 86900; 86901; 88307; 99218; J7120; A4216; G0378; J3490

== ENCOUNTER → 2019-08-29 13:50 | Outpatient (CLI) | payer OTHER, SELFPAY ==
[2019-07-18 22:44] VITALS: BMI 32.2
[2019-09-07 16:53] LABS: HPV Reflexed? NOT INDICATED
== END ==
PROVIDERS: Visit Provider Obstetrics & Gynecology
DX: Z12.4 Encounter for screening for malignant neoplasm of cervix (principal)
CPT/HCPCS: 88175; G0145

== ENCOUNTER → 2023-11-04 | Outpatient (CLI) | payer BC, SELFPAY ==
--- OUTSIDE RECORDS SUMMARY | 2023-11-04 11:38 | XMS RPT_ITS | CCD ---
Author Name Unknown Address [address] [place] [address] Organization [facility] Care Team Providers Care Passenger Coach Driver Name Role Phone FUENTES, NOE C Unavailable Unavailable FUENTES, NOE C Unavailable Unavailable FUENTES, NOE C Unavailable Unavailable NO, DOCTOR ON Unavailable Unavailable NO, DOCTOR ON Unavailable Unavailable FUENTES, NOE C Unavailable Unavailable FUENTES, NOE C Unavailable Unavailable NO, DOCTOR ON Unavailable Unavailable FUENTES, NOE C Unavailable Unavailable NO, DOCTOR ON Unavailable Unavailable AMOR, FREDRICK E Unavailable Unavailable AMOR, FREDRICK Dill Unavailable Unavailable AMOR, FREDRICK Dill Unavailable Unavailable Allergies Allergy Classification Reported Allergen(s) Allergy Type Date of Onset Reaction(s) Facility (1 source) clindamycin Drug Allergy [facility] Repository (2 sources) corticotropin Drug Allergy [facility] (2 sources) penicillin Drug Allergy [facility] Rep[facility] Problems Active Problems Problem Classification Problem Date Documented Da te Episodic/Chronic External Injury - Cut / Ramon (1 source) Contact with sharp glass, initial encounter; Translations: [Contact with sharp glass, initial encounter] Onset: 05-08-2017 External Injury - Unspecified (1 source) Activity, food preparation and clean up; Translations: [Activity, food preparation and clean up] Onset: 05-08-2017 Past or Other Problems Problem Classification Problem Date Documented Da te Episodic/Chronic Chronic obstructive pulmonary disease and bronchiectasis (1 source) Bronchitis, not specified as acute or chronic; Translations: [Bronchitis, not specified as acute or chronic] Onset: 06-08-2017 Episodic Open wounds of extremities (3 sources) Laceration without foreign body of right thumb without damage to nail, initial encounter; Translations: [Laceration without foreign body of right thumb without damage to nail, initial encounter] Onset: 05-08-2017 Episodic Other lower respiratory disease (2 sources) Cough; Translations: [Cough] Onset: 06-08-2017 Episodic Other upper respiratory infections (1 source) Acute upper respiratory infection, unspecified; Translations: [Acute upper respiratory infection, unspecified] Onset: 06-08-2017 Episodic Results Test Name Value Interpretation Reference Range Facil ity Encounters Encounter Date Encounter Type Care Provider Facility Start: 06-08-2017 End: 06-08-2017 Emergency department patient visit NOE Marie FUENTES [facility] Start: 05-29-2017 End: 05-29-2017 Emergency department patient visit NOE Marie FUENTES [facility] Start: 05-08-2017 End: 05-08-2017 Emergency department patient visit FREDRICK CHINCHILLA [facility] Payers Date Payer Category Payer Policy ID [employer] ( and others ) [id number] Worker's Compensation [id number] Summary Purpose Family History No Family History Records Found Advance Directives No Advanced Directives Records Found Additional Source Comments INFORMATION SOURCE (unrecogn ized section and content) FOR RECORDS PERTAINING TO PATIENTS WHO ARE OR HAVE BEEN ENROLLED IN A CHEMICAL DEPENDENCY/SUBSTANCEABUSE PROGRAM, SOME INFORMATION MAY BE OMITTED. This clinical summary was aggregated from multiple sources. Caution should be exercised in using it in the provision of clinical care. This summary normalizes information from multiple sources, and as a consequence, information in this document may materially change the coding, format and clinical context of patient data. In addition, data may be omitted in some cases. CLINICAL DECISIONS SHOULD BE BASED ON THE PRIMARY CLINICAL RECORDS. [employer] [facility] [facility]. provides no warranty or guarantee of the accuracy or completeness of information in this document.
[2023-11-04 12:21] LABS: Absolute Neutrophil Count 6.3 X10^3/uL (2.0-7.7); Basophil# 0.05 X10^3/uL; Basophil% 0.5 % (0-1); Hematocrit 42.4 % (37-47); Hemoglobin 14.1 g/dL (12.0-15.0); Lymphocyte % 32.1 % (19-41); Mean Corp Hgb Conc 33.3 g/dL (32-36); Mean Corpuscular Hgb 32.4 pg (27.0-32.0); Mean Corpuscular Volume 97.5 fL (81-99); Mean Platelet Vol. 11.6 fl (6.2-12.0); Monocyte# 0.46 X10^3/uL; Monocyte% 4.5 % (0-10); NRBC Flagged by Analyzer 0 % (0-5); Neutrophil # 6.33 X10^3/uL (2.7-7.7); Neutrophil % 61.4 % (47-70); Platelet Count 231 K/mm3 (150-450); RBC Distribution Width CV 12.2 % (11.6-14.6); RBC Distribution Width SD 44.3 fl (35.1-43.9); Red Blood Count 4.35 M/mm3 (4.2-5.4); White Blood Count 10.3 K/mm3 (4.4-11.0)
[2023-11-04 13:09] LABS: AST(SGOT) 17 U/L (15-37); Alanine Aminotransfer ALT/SGPT 17 U/L (13-56); Albumin, Serum 3.8 g/dL (3.2-5.0); Alkaline Phosphatase 86 U/L (45-117); Anion Gap 6 (5-15); BUN 7 mg/dL (7-18); BUN/Creat Ratio 12.7 RATIO (10-20); Calcium,Total 9.7 mg/dL (8.5-10.1); Chloride 109 mmol/L (98-107); Creatinine, Serum 0.55 mg/dL (0.55-1.02); EST Glomerular Filtration Rate 138 mL/min (>60); Est Glom Filt Rate - Afr Amer 167 mL/min (>60); Glucose 99 mg/dL (74-106); Potassium 3.6 mmol/L (3.5-5.1); Protein, Total 7.8 g/dL (6.4-8.2); Sodium Level 139 mmol/L (136-145)
[2023-11-04 16:30] LABS: hCG Titer Quant., Serum 570 mIU/mL (1-3)
== END | disposition home or self-care (01) ==
LOC: MFPLAB 11:08
PROVIDERS: PCP Family Medicine; Visit Provider Nurse Practitioner Family
DX: Z34.90 Encounter for supervision of normal pregnancy, unspecified, unspecified trimester (principal)
CPT/HCPCS: 36415; 80053; 84702; 84703; 85025

== ENCOUNTER → 2024-05-06 | Outpatient (CLI) | payer BC, SELFPAY ==
[2024-05-06 15:17] LABS: Hemoglobin 11.7 g/dL (12.0-15.0); Mean Corp Hgb Conc 32.5 g/dL (32-36); Mean Corpuscular Hgb 33.3 pg (27.0-32.0); Mean Corpuscular Volume 102.6 fL (81-99); Mean Platelet Vol. 12.1 fl (6.2-12.0); Platelet Count 225 K/mm3 (150-450); RBC Distribution Width CV 12.5 % (11.6-14.6); RBC Distribution Width SD 46.8 fl (35.1-43.9); Red Blood Count 3.51 M/mm3 (4.2-5.4); White Blood Count 13.9 K/mm3 (4.4-11.0)
[2024-05-06 15:47] LABS: Ferritin 6 ng/mL (8-252)
== END | disposition home or self-care (01) ==
LOC: MFPLAB 11:28
PROVIDERS: PCP Family Medicine; Visit Provider Family Medicine
DX: Z34.90 Encounter for supervision of normal pregnancy, unspecified, unspecified trimester (principal)
CPT/HCPCS: 36415; 82728; 85027

== ENCOUNTER → 2024-06-06 | Outpatient (CLI) | payer BC, SELFPAY ==
[2024-06-06 15:06] LABS: Absolute Lymphocyte Count 2.99 X10^3/uL (0.83-4.51); Absolute Neutrophil Count 9.9 X10^3/uL (2.0-7.7); Basophil# 0.04 X10^3/uL; Basophil% 0.3 % (0-1); Eosinophil# 0.08 X10^3/uL; Eosinophils% 0.6 % (0-5); Hematocrit 37.1 % (37-47); Hemoglobin 12.2 g/dL (12.0-15.0); Lymphocyte # 2.99 X10^3/ul (0.83-4.51); Lymphocyte % 21.6 % (19-41); Mean Corp Hgb Conc 32.9 g/dL (32-36); Mean Corpuscular Hgb 33.2 pg (27.0-32.0); Mean Corpuscular Volume 101.1 fL (81-99); Mean Platelet Vol. 12.1 fl (6.2-12.0); Monocyte# 0.71 X10^3/uL; Monocyte% 5.1 % (0-10); NRBC Flagged by Analyzer 0 % (0-5); Neutrophil # 9.94 X10^3/uL (2.7-7.7); Neutrophil % 71.8 % (47-70); Platelet Count 235 K/mm3 (150-450); RBC Distribution Width CV 12.7 % (11.6-14.6); RBC Distribution Width SD 47.5 fl (35.1-43.9); Red Blood Count 3.67 M/mm3 (4.2-5.4); White Blood Count 13.9 K/mm3 (4.4-11.0)
[2024-06-06 15:32] LABS: Ferritin 9 ng/mL (8-252); Iron 69 ug/dL (50-170); Iron Binding Capacity,Total 516 ug/dL (250-450); PERCENT IRON SATURATION 13.4 % (15.0-55.0)
== END | disposition home or self-care (01) ==
PROVIDERS: PCP Family Medicine; Referring Provider Family Medicine; Visit Provider Family Medicine
DX: E61.1 Iron deficiency (principal)
CPT/HCPCS: 36415; 82728; 83540; 83550; 85025

== ENCOUNTER 2024-07-05 22:45 | Outpatient (CLI) | payer BC, SELFPAY ==
[2024-07-05] VITALS (15 sets, daily range): BP systolic 109–123; BP diastolic 67–74; PULSE 80–113; O2SAT 97–99
[2024-07-06] VITALS (15 sets, daily range): BP systolic 107–118; BP diastolic 65–75; PULSE 80–103; O2SAT 96–100
[2024-07-06 00:32] LABS: Absolute Neutrophil Count 20.7 X10^3/uL (2.0-7.7); Basophil# 0.05 X10^3/uL; Basophil% 0.2 % (0-1); Eosinophil# 0.01 X10^3/uL; Hematocrit 32.9 % (37-47); Hemoglobin 11.3 g/dL (12.0-15.0); Lymphocyte % 11.9 % (19-41); Mean Corp Hgb Conc 34.3 g/dL (32-36); Mean Corpuscular Hgb 34.1 pg (27.0-32.0); Mean Corpuscular Volume 99.4 fL (81-99); Mean Platelet Vol. 12.1 fl (6.2-12.0); Monocyte# 1.27 X10^3/uL; NRBC Flagged by Analyzer 0 % (0-5); Neutrophil # 20.66 X10^3/uL (2.7-7.7); Neutrophil % 82.2 % (47-70); POSITIVE DIFFERENTIAL YES; Platelet Count 172 K/mm3 (150-450); RBC Distribution Width CV 13.2 % (11.6-14.6); RBC Distribution Width SD 47.4 fl (35.1-43.9); Red Blood Count 3.31 M/mm3 (4.2-5.4); White Blood Count 25.2 K/mm3 (4.4-11.0)
[2024-07-06 00:36] LABS: Differential Indicated SCAN CRITERIA MET
[2024-07-06 01:20] LABS: Differential Comment SCANNED
--- NOTE | 2024-07-06 16:43 | OB.TRI.HP_ITS ---
HPI - General General Date of Service: 07/05/24 HPI Narrative SALTY BIGGS, is a 28 F G5, P5 who presents to labor and delivery by squad with her motorboat mechanic. Patient had a spontaneous vaginal delivery at home approximately 1 to 2 hours prior to presentation to labor and delivery. She passed a large clot at home and opted to proceed to labor and delivery for further evaluation. Estimated blood loss per the motorboat mechanic was 850 cc. She presented by squad with a motorboat mechanic at her . Upon presentation patient was noted to have minimal vaginal bleeding and fundus was firm. Patient was nursing her baby. Maternal Data Information Gestational age: 1 to 2 hours PFSH PFS Home Medications ?Medication ?Instructions ?Recorded ?Last Taken ?Type Formula Tablet 1 tab PO DAILY 07/11/19 07/18/19 10:00 History Allergy/AdvReac Type Severity Reaction Status Date / Time amoxicillin Allergy Unknown Other Verified 07/18/19 22:45 cefdinir (From Omnicef) Allergy Abd Verified 07/18/19 22:45 cramps/diarrhea Penicillins (PCN) Allergy Hives Verified 07/18/19 22:45 Social History Smoking Status: Former smoker History Elective abortions Hx Para 2 Spontaneous abortions Hx # Term Pregnancies Ectopic pregnancies Hx # Pregnancies Multiple births # of living children Addt'l History: This was the patient's fifth delivery. This delivery was at home and was reported as uneventful per the motorboat mechanic. OB Visit Details Medical History Comments: Patient should not desires any medical problems such as diabetes or HTN Physical Exam Const alert, oriented x3 and no apparent distress General Appearance: cooperative and comfortable Exam Limitations: no limitations HEENT Head and Scalp: normocephalic Resp normal respiratory effort, no retractions and clear to auscultation bilaterally Cardio regular rate, regular rhythm, no murmurs and no gallops GI GI Narrative: Fundus is firm and nontender at about the umbilicus. Narrative: Perineum appears intact with minimal bleeding noted. Extremity normal to inspection, no clubbing, cyanosis or edema and no pedal edema Skin no rashes or lesions noted Neuro moves all extremities Psych mental status grossly normal, affect normal, speech normal and activity/motor behavior normal Assessment & Plan (1) atony of uterus with hemorrhage: COMMENT: bleeding which likely resolved prior to arriving in labor and delivery. Fundus was firm with minimal bleeding noted. Hemoglobin was noted to be 11.3 which is in the normal range and patient was observed for about 2 to 3 hours and discharged to home with normal bleeding noted prior to discharge. She was instructed to return to labor and delivery if bleeding becomes markedly heavier. Otherwise she plans to follow-up with her motorboat mechanic.
== END 2024-07-06 01:20 | disposition home or self-care (01) ==
LOC: WP 07-06 01:22 → WPOUT 07-06 07:37
PROVIDERS: PCP Family Medicine; Referring Provider Obstetrics & Gynecology; Visit Provider Obstetrics & Gynecology
DX: O72.1 Other immediate postpartum hemorrhage (principal); Z87.891 Personal history of nicotine dependence; Z3A.00 Weeks of gestation of pregnancy not specified
CPT/HCPCS: 36415; 85025; 86850; 86900; 86901; 99221; G0378

== ENCOUNTER 2024-08-02 19:52 | Emergency (ER) | payer BC, SELFPAY ==
[2024-08-02 19:53] VITALS: BP 123/76; PULSE 109; RESP 15; TEMP 36.1; O2SAT 98; BMI 32.9
[2024-08-02 19:55] VITALS: BP 123/76; PULSE 110; RESP 16; TEMP 36.1; O2SAT 98
[2024-08-02 20:28] VITALS: BP 108/62; PULSE 107; RESP 19; TEMP 37.3; O2SAT 94
--- NOTE | 2024-08-02 20:58 | EDS_ITS ---
HPI History of Present Illness Chief Complaint: Other, Pain/Inj Narrative Narrative: 29-year-old female presents with left breast pain, redness, and swelling that she has had since 3:00 this morning, approximately 17 hours ago. She states yesterday everything was fine. She gave in June, approximately 2 months ago, and has been breast-feeding. She states that she breast-fed her other children and never had this problem. She states that she has had low- grade fever, and she called her nurse pharmaceutical sales representative who delivered her at home, and was told to continue pumping, and breast-feeding. She presents because of the increased pain and redness. No other symptoms. [facility] Medical History PTSD (post-traumatic stress disorder) Home Medications ?Medication ?Instructions ?Recorded ?Last Taken ?Type NK 08/02/24 Unknown History sulfamethoxazole 800 1 tab PO BID #20 tabs 08/02/24 Unknown Rx mg-trimethoprim 160 mg tablet (Bactrim DS) Allergy/AdvReac Type Severity Reaction Status Date / Time amoxicillin Allergy Unknown Other Verified 08/02/24 19:56 cefdinir (From Omnicef) Allergy Abd Verified 08/02/24 19:56 cramps/diarrhea Penicillins (PCN) Allergy Hives Verified 08/02/24 19:56 Social History Smoking Status: Light Smoker (<10/day) ROS ROS ED ROS Narrative Constitutional: No fever, no chills. HEENT: No sore throat. No neck pain. No loss of vision. No rhinorrhea. Cardiovascular: Positive for left breast pain, redness, and swelling. No palpitations. No pedal edema. Respiratory: No cough, no shortness of breath. Abdominal: No abdominal pain. No nausea. No vomiting. Genitourinary: No dysuria. No hematuria. Musculoskeletal: No myalgias. No arthralgias. Neurologic: No headaches. No dizziness. No lightheadedness. Skin: No rash. Positive erythema to left breast. Psychiatric: No depression. No anxiety. EXAM Physical Exam Narrative Exam Narrative: Afebrile. Vital signs noted. Nontoxic-appearing. Positive tachycardia. Lungs clear to auscultation bilaterally. Abdomen soft nontender with normal active bowel sounds. Neurological examination shows her to be awake, alert, and oriented. Chaperoned breast examination does reveal diffuse tenderness especially around the nipple and in the left upper quadrant of the breast. There is mild erythema noted. No fluctuance. Const Vital Signs: 08/02/24 19:53 08/02/24 19:55 08/02/24 20:28 Temperature 97.0 F L 97 F L 99.2 F H Temperature Source Temporal Temporal Oral Pulse Rate 109 H 110 H 107 H Respiratory Rate 15 16 19 H Respiratory Effort Respiratory Pattern Blood Pressure 123/76 H 123/76 H 108/62 Blood Pressure Mean 91 91 77 Pulse Ox 98 98 94 Oxygen Delivery Method Room Air Room Air Room Air 08/02/24 20:28 Temperature Temperature Source Pulse Rate Respiratory Rate Respiratory Effort Normal Respiratory Pattern Normal Blood Pressure Blood Pressure Mean Pulse Ox Oxygen Delivery Method MDM MDM MDM Narrative Medical decision making narrative: Differential diagnosis includes but not limited to cellulitis/mastitis versus abscess. I do not feel she requires laboratory workup or imaging. She has allergies to penicillin and amoxicillin where she gets hives. From Omnicef she gets abdominal cramping and diarrhea. Although this is not a true allergy, she will be placed on Bactrim as an alternative. I wrote her prescription for 10 days to take twice a day. She will continue warm compresses and continue breast-feeding/breast pumping and follow-up with her certified nurse pharmaceutical sales representative. I feel she can be discharged safely home with follow-up. She was told to take [id number] medications for analgesia like Tylenol but to avoid NSAIDs. Return instructions to the emergency department were reviewed. I feel that she merits trial of outpatient treatment with antibiotics and that she does not emergently require admission currently. Patient is agreeable to the plan. Disposition is discharged home in stable condition. History & Record Review Discussion w/independent historian: Patient Additional record(s) reviewed:: Prior inpatient record (No MANAGER IMAGING visits since 2019) Discharge Plan Triage Chief Complaint: Other, Pain/Inj ED Provider: Alfredito Rodriguez Dx/Rx/DC Orders Clinical Impression: Mastitis, Breast pain, left Instructions: ED Mastitis Prescriptions: New sulfamethoxazole-trimethoprim [Bactrim DS] 800-160 mg tablet 1 tab PO BID Qty: 20 0RF No Action NK Primary Care Provider: Katlyn Tate Referrals: Katlyn Tate MD [Primary Care Provider] - Activity Restrictions/Additional Instructions: Follow-up with your certified nurse pharmaceutical sales representative in the next few days. Call tomorrow. Return to the emergency department with increased swelling, redness, pain, or fever. Take the antibiotic as directed, and continue to breast-feed or breast pump. Print Language: Danish Disposition Disposition: Home, Self Care
[2024-08-02] MEDS: Smz/Tmp Ds Tablet 1 TABLET PO (21:05)
[2024-08-02 21:13] VITALS: BP 109/67; PULSE 68; RESP 18; TEMP 36.8; O2SAT 100
== END 2024-08-02 21:15 | disposition home or self-care (01) ==
LOC: ED 21:15
PROVIDERS: Emergency Provider Emergency Medicine; PCP Family Medicine; Visit Provider Emergency Medicine
DX: N61.0 Mastitis without abscess (principal); N64.4 Mastodynia; F17.210 Nicotine dependence, cigarettes, uncomplicated; F43.10 Post-traumatic stress disorder, unspecified
CPT/HCPCS: 99283